=== PATIENT | female | born 1955 | race Caucasian/White ===

== ENCOUNTER 2016-11-27 23:00 | Observation (INO) | payer BC ==
--- NOTE | ~2016-11-27 | PREOPHP ---
PreOp History and Physical [place] [id number] [facility] [place]. [address] NAME: ILYA JURADO : 59 STATUS : ADM Alyssa PAT#: [id number] AGE: 61 ADM/REG DATE : 11/27/16 MR#: [id number] REPORT SERV DATE: 11/29/16 DICTATED BY: BLAIRE HAYS DATE: 11/28/16 REPORT STATUS : Draft TRANSCRIBED BY: ALBERTO DATE: 11/28/16 REASON FOR ADMISSION: 1. donor related kidney transplant dating back to [address] Castellano and Dr. Coles, question underlying hypertension versus chronic glomerular disease, with excellent allograft function, creatinine runs about 1.2 to 1.3. 2. She has underlying edema of lower extremities that developed over past several months but her urinalysis done in October showed no proteinuria. I will resume her transplant medications pending evaluation of her reason for admission. 3. Pleuritic chest pain, retrosternal in area, reproducible on palpation. She underwent removal of a premelanotic or melanotic like lesion by Dr. Nowak this past Friday. She had to lay on her chest for about an hour and initially on Friday night to molder machine she developed some right-sided facial numbness, tingling, Friday morning chest pain, worse with inspiration, worse on touching and positional. She came to the ER for evaluation where the EKG showed no acute ischemic changes. Her troponins are negative. V/Q scan is negative and so she underwent a PET stress test. Initial PET scan showed no ischemia. With the stress test, there could be some mild to moderate inferior lateral disease. She denies any previous history of angina-like chest pain, so we will discuss with Cardiology as to what they want to do about this. Meanwhile, I am holding losartan HCTZ in case there is a need for an angiogram. She is at risk for dye-induced nephropathy, but at this point, she has lower limb edema and some volume excess related to probably dietary noncompliance with salt intake. 4. Hypertension. 5. She has a left upper arm AV fistula that was never used. 6. She is on chronic Macrodantin. The minocycline was actually started after her surgery 2 days ago. MEDICATIONS: Home medications include calcium, famotidine, HCTZ, losartan, minocycline, mycophenolate, nitrofurantoin, pravastatin, prednisone, tacrolimus, and she takes some magnesium. ALLERGIES: PENICILLIN AND CODEINE. HISTORY OF PRESENT ILLNESS: As described above. PHYSICAL EXAMINATION: GENERAL: She is obese female in no acute distress. She is not lying down because the pain is exacerbated by position. VITAL SIGNS: Blood pressure 138/66, heart rate in 100s, she is afebrile. HEENT: Pupils are reacting to light. She is not pale or jaundiced. Oral mucosa is moist. No pharyngitis. NECK: Supple. No thyromegaly. Trachea central. She is tender over the anterior sternum and left rib areas that is reproducible and worse with inspiration. I hear no rub an S1 and S2. She does appear to have a loud P2. Air entry is equal bilaterally. CHEST: Clear to auscultation. ABDOMEN: Nontender. No hepatosplenomegaly. Transplant in right lower quadrant. No guarding or rebound. She has about 2 to 3+ lower limb edema. NEUROLOGIC: She is awake, alert, and oriented to time, place, and person. No gross PreOp History and Physical [address] [address] NAME: ILYA JURADO : 59 STATUS : ADM Alyssa PAT#: [id number] AGE: 61 ADM/REG DATE : 11/27/16 MR#: [id number] REPORT SERV DATE: 11/29/16 DICTATED BY: BLAIRE HAYS DATE: 11/28/16 REPORT STATUS : Draft TRANSCRIBED BY: MODL DATE: 11/28/16 neurological deficits. LABORATORY DATA: Sodium 140, potassium 4.3, chloride 104, CO2 of 26, BUN 26, creatinine 1.23, albumin 3.3, calcium 8.6, magnesium 1.7. Hemoglobin is 11.8, hematocrit is 26.0, white count 9.4, and platelet count 165,000. Urinalysis done in October showed no proteinuria, pyuria, hematuria. V/Q scan is as described. Chest x-ray done, PA and lateral showed bibasilar segmental atelectasis but otherwise no evidence of any abnormalities. MG/MODL Blaire Hays M.D. / [id number] CC: Lani Souza M.D.
--- NOTE | ~2016-11-27 | CN ---
Consultation Report [facility] [address] [place]. [address] NAME: ILYA JURADO : 59 STATUS : ADM Alyssa PAT#: [id number] AGE: 61 ADM/REG DATE : 11/27/16 MR#: [id number] REPORT SERV DATE: 11/28/16 DICTATED BY: TODD GRIGGS DATE: 11/28/16 REPORT STATUS : Draft TRANSCRIBED BY: MODL DATE: 11/28/16 CONSULTATION DATE OF CONSULTATION: 11/28/2016 REASON FOR CONSULTATION: Chest pain. HISTORY OF PRESENT ILLNESS: Ms. Jurado is a pleasant, 61-year-old, female with a history of obesity, end-stage renal disease, status post renal transplant ([place] in 2008), and hypertension who presents to [facility] with symptoms of central chest pains radiating to her right side of her chest. She states that she had been in her usual state of health up until earlier this week on Friday when her face went numb. This self-resolved, however, on Friday she developed central chest pains and pressures. These radiated to her right chest. They did not resolve, therefore prompting her to present to [facility] for further cardiac evaluation and care. Here, she has had cardiac enzymes which have been negative x2 sets as well as an EKG that shows no ischemic changes. She has had some improvement with her chest pains, they are not completely resolved at this point in time. She states that her pain gets worse with exertion at times for instance last night when she was walking to the emergency room within the ER. She also states that at times they can get worse with deep breaths. Outside of this, she has not had reproducible and consistent exertional symptoms in her day-to-day life, however, she does not exert herself to a great extent. PAST MEDICAL HISTORY: As above. SOCIAL HISTORY: The patient lives at home with her . She functions independently under normal circumstances. Denies drinking alcohol, smoking or doing drugs. FAMILY HISTORY: Significant for arrhythmia in her brother who is younger than her (age not known), and heart disease in general on her father side (multiple family members at an older age). HOME MEDICATIONS: 1. Tylenol. 2. Calcium. 3. Pepcid. 4. Hydrochlorothiazide. 5. Cozaar. 6. Minocycline. 7. Macrodantin. 8. Pravastatin. 9. Prednisone. 10.Prograf. 11.Magnesium. Consultation Report [place] [address] [place]. [address] NAME: ILYA JURADO : 59 STATUS : ADM Alyssa PAT#: [id number] AGE: 61 ADM/REG DATE : 11/27/16 MR#: [id number] REPORT SERV DATE: 11/28/16 DICTATED BY: TODD GRIGGS DATE: 11/28/16 REPORT STATUS : Draft TRANSCRIBED BY: ALBERTO DATE: 11/28/16 REVIEW OF SYSTEMS: As above, all other systems otherwise negative. PHYSICAL EXAMINATION: VITAL SIGNS: Blood pressure 160/74, pulse 77, sinus, temperature 97.8. GENERAL: Obese, well developed, well nourished, no acute distress. NEURO: Awake, alert and oriented x3; no focal deficits, appropriate mood. HEENT: Moist mucous membranes, anicteric sclerae, no nasal discharge. NECK: No JVD, no carotid bruit. LUNGS: Clear to auscultation bilaterally, no wheezes, rales or rhonchi. CV: Regular rhythm, normal S1/S2, no murmurs, rubs or gallops. ABD: Soft, non-tender, non-distended, no rebound or guarding. EXT: No pitting edema, normal distal pulses. SKIN: Warm, dry and intact; no rash. PERTINENT TEST FINDINGS: Troponin less than 0.02 x2. Hemoglobin 11.8, potassium 4.3, creatinine 1.23. EKG with sinus rhythm, normal mean QRS axis. No pathologic Q-waves and no ischemic ST/T-wave changes. IMPRESSION AND PLAN: Ms. Jurado is a pleasant, 61-year-old, female with a history of end- stage renal disease, status post renal transplant (2008), morbid obesity, hypertension, who presents with atypical chest pains, now ruled out for myocardial infarction. Accordingly, I recommend that she complete a stress PET MPI. I have scheduled this already. In addition, given some features of pleuritic pains coming on with deep breaths per her description, I believe that it would be helpful to rule out possible pulmonary embolism with a V/Q scan and not a CTA given her renal history. Otherwise, she should complete an echocardiogram. Further recommendations to follow findings. TJ/MODL Todd Griggs MD / [id number] CC: Lani Souza M.D.
[2016-11-27 18:40] LABS: BASOPHILS 0.2 %; BASOPHILS ABSOLUTE 0.02 10/3/uL (0.0-0.16); EOSINOPHILS 0.7 %; EOSINOPHILS ABSOLUTE 0.07 10/3/uL (0.0-0.53); HEMOGLOBIN 11.8 g/dL (12.0-16.0); IMMATURE GRANULOCYTES 0.4 %; IMMATURE GRANULOCYTES ABSOLUTE 0.04 10/3/uL (0.0-0.11); LYMPHOCYTES 8.5 %; MEAN CORPUS HGB CONC 32.8 g/dL (32.0-36.0); MEAN CORPUSCULAR HEMOGLOB 29.4 pg (26.0-34.0); MEAN CORPUSCULAR VOLUME 89.6 fL (80-100); MEAN PLATELET VOLUME 8.9 fL (9.2-13.0); MONOCYTES 7.1 %; MONOCYTES ABSOLUTE 0.67 10/3/uL (0.21-1.20); NEUTROPHILS 83.1 %; NEUTROPHILS ABSOLUTE 7.84 10/3/uL (2.02-8.40); PLATELET COUNT 165 10/3/uL (150-400); RBC DISTRIBUTION WIDTH 14.2 % (12.0-16.0); RED CELL COUNT 4.02 10/6/uL (4.0-5.6)
[2016-11-27 18:42] LABS: ER CBC TAT 0 Hrs 16 Mins; MANUAL DIFF NO %; WHITE BLOOD CELLS 9.4 10/3/uL (4.5-10.5)
[2016-11-27 18:53] LABS: INTERNATIONAL NORMAL RATI 1.1 UNITS (-); PROTIME (NOT ORD) 13.7 SEC (12.0-14.5)
[2016-11-27 18:56] LABS: CALCIUM, SERUM 8.6 MG/DL (8.5-10.4); CHEST PAIN PROFILE TAT 0 Hrs 30 Mins; CHLORIDE, SERUM 104 MMOL/L (96-112); CO2 (CARBON DIOXIDE) 26 MMOL/L (24-34); CREATININE 1.23 MG/DL (0.55-1.02); GFR AFRICAN AMERICAN 56 ML/MIN (>=60); GFR NON AFRICAN AMERICAN 48 ML/MIN (>=60); POTASSIUM, SERUM 4.3 MMOL/L (3.5-5.3); TROPONIN I <0.02 NG/ML (<0.05)
[2016-11-27 18:57] LABS: BUN (BLOOD UREA NITROGEN) 26 MG/DL (6-23); GLUCOSE, SERUM 121 MG/DL (60-99); SODIUM, SERUM 140 MMOL/L (135-148)
[~2016-11-27 23:00] MED LIST: AVAPRO300 MG PO; CALTRA600D PO; CELLCEPT5 PO; COZAAR100 MG PO; MACRODANTIN 10100 MG PO; MINOCIN100 PO; MYFORTIC360 MG PO; NAC PO; NEXIUM40 PO; P20 PO; P5 PO; PCET PO; PEP20 PO; PRAVACHOL80 MG PO; PROGRAF1; PROGRAF1 PO; SMZ-TMP; VALCYTE PO
[2016-11-27] MEDS ORDERED: PEP20 PO (23:01)
[2016-11-27] MEDS ORDERED: BIOFREEZE OINTMENT TOP (23:01)
[2016-11-27] MEDS ORDERED: ACET500CAP PO (23:02)
[2016-11-27] MEDS ORDERED: HYDROCHLOROT25 MG PO (23:02)
[2016-11-27] MEDS ORDERED: MAGNESIUM 250MG OTC PO (23:02)
[2016-11-27] MEDS ORDERED: P5 PO (23:09)
[2016-11-29 04:48] LABS: BASOPHILS 0.1 %; BASOPHILS ABSOLUTE 0.01 10/3/uL (0.0-0.16); EOSINOPHILS 2.3 %; EOSINOPHILS ABSOLUTE 0.17 10/3/uL (0.0-0.53); HEMATOCRIT 32.8 % (36.0-48.0); IMMATURE GRANULOCYTES 0.7 %; IMMATURE GRANULOCYTES ABSOLUTE 0.05 10/3/uL (0.0-0.11); LYMPHOCYTES 10.7 %; MEAN CORPUS HGB CONC 33.5 g/dL (32.0-36.0); MEAN CORPUSCULAR HEMOGLOB 29.6 pg (26.0-34.0); MEAN CORPUSCULAR VOLUME 88.2 fL (80-100); MEAN PLATELET VOLUME 8.9 fL (9.2-13.0); MONOCYTES 9.7 %; MONOCYTES ABSOLUTE 0.73 10/3/uL (0.21-1.20); NEUTROPHILS 76.5 %; NEUTROPHILS ABSOLUTE 5.73 10/3/uL (2.02-8.40); PLATELET COUNT 160 10/3/uL (150-400); RBC DISTRIBUTION WIDTH 14.2 % (12.0-16.0); RED CELL COUNT 3.72 10/6/uL (4.0-5.6); WHITE BLOOD CELLS 7.5 10/3/uL (4.5-10.5)
[2016-11-29 04:53] LABS: MANUAL DIFF NO %
[2016-11-29 05:10] LABS: ALBUMIN 3.2 G/DL (3.5-5.0); CHLORIDE, SERUM 101 MMOL/L (96-112); CHOL/HDL RATIO(NOT ORDER) 3.2 (0-5); CHOLESTEROL 191 MG/DL (< 200); CO2 (CARBON DIOXIDE) 25 MMOL/L (24-34); CREATININE 1.33 MG/DL (0.55-1.02); GFR AFRICAN AMERICAN 51 ML/MIN (>=60); GFR NON AFRICAN AMERICAN 44 ML/MIN (>=60); GLUCOSE, SERUM 110 MG/DL (60-99); HDL CHOLESTEROL 59 MG/DL (> 49); LDL CHOLESTEROL 109 MG/DL (< 130); NON-HDL CHOLESTEROL 132 MG/DL (< 160); PHOSPHORUS, SERUM 3.8 MG/DL (2.5-4.5); POTASSIUM, SERUM 3.9 MMOL/L (3.5-5.3); SODIUM, SERUM 135 MMOL/L (135-148); TRIGLYCERIDE 117 MG/DL (< 150)
[2016-11-29 05:27] LABS: BUN (BLOOD UREA NITROGEN) 31 MG/DL (6-23)
[2016-11-29 10:57] LABS: ASCORBIC ACID (UR NOT ORDER) NEG (NEG); BILIRUBIN, URINE NEGATIVE (NEG); KETONE, URINE NEGATIVE (NEG); LEUKOCYTE ESTERASE(NOT OR SMALL (NEG); WBC (NOT ORDERED) (RFLEX) 2 (0-5)
[2016-11-29] MEDS ORDERED: LIPITOR40 (17:36)
[2016-11-29] MEDS ORDERED: ASA5GR PO (17:36)
[2016-11-29] MEDS ORDERED: DEMA20 PO (17:44)
[2016-11-29] MEDS ORDERED: ASAB PO (17:44)
[2016-11-29] MEDS ORDERED: COREG6 PO (17:45)
== END 2016-11-29 18:28 | disposition home or self-care (01) ==
LOC: ER 23:00 → 5NO 23:09
PROVIDERS: Emergency Medicine; Internal Medicine Nephrology
DX: R07.89 Other chest pain (principal); I12.0 Hypertensive chronic kidney disease with stage 5 chronic kidney disease or end stage renal disease; N18.6 End stage renal disease; Z94.0 Kidney transplant status; E66.01 Morbid (severe) obesity due to excess calories; Z88.0 Allergy status to penicillin; Z88.6 Allergy status to analgesic agent; I25.10 Atherosclerotic heart disease of native coronary artery without angina pectoris; Z79.899 Other long term (current) drug therapy
CPT/HCPCS: 70450; 71020; 78492; 78582; 80048; 80061; 80069; 81001; 83735; 84484; 84703; 85025; 85610; 85730; 87086; 93005; 93017; 93306; 99285; A9270-GY; A9540; A9555; A9567; G0378; J0280; J2785; J7507